=== PATIENT | male | born 1970 | race Caucasian/White ===

== ENCOUNTER 2018-03-13 05:54 | Emergency (ER) | payer OTHER ==
[~2018-03-13] VITALS: Ht 185.4 cm; Wt 79.4 kg
[2018-03-13 06:03] VITALS: BP 147/92
--- NOTE | 2018-03-13 06:06 | NUR ---
PATIENT BROUGHT IN BY SELF WITH C/O HIGH BLOOD PRESSURE 173/105 WHEN CHECKED AT [facility]. UPON EVALUATION IN ER, BP 147/92. NO ACUTE DISTRESS NOTED AT THIS TIME, AWAITING MD CATES
== END 2018-03-13 06:22 | disposition home or self-care (01) ==
LOC: ER 05:56
DX: R03.0 Elevated blood-pressure reading, without diagnosis of hypertension (principal); Z90.89 Acquired absence of other organs; Z88.6 Allergy status to analgesic agent
CPT/HCPCS: 99281; A4606; Z7610; Z7502

== ENCOUNTER 2022-11-24 01:22 | Emergency (ER) | payer OTHER ==
[~2022-11-24] VITALS: Ht 182.9 cm; Wt 83.9 kg
--- NOTE | 2022-11-24 02:00 | NUR ---
BIBS FOR R ANKLE PAIN AND SWELLING S/P FALL WHILE PLAYING PING PONG, GOOD PEDAL PULSE, - NEURO DEFICIT. PT IS AAOX4, ABLE TO MAKE NEEDS KNOWN, AMBULATORY
[2022-11-24] MEDS ORDERED: IBUPROFEN 400 MG TABLET ONE (02:14)
--- NOTE | 2022-11-24 02:17 | NUR ---
REFUSED TO TAKE MOTRIN AT THE MOMENT
[2022-11-24] MEDS ORDERED: IBUPROFEN 400 MG TABLET PO ONE (02:30)
--- NOTE | 2022-11-24 03:37 | NUR ---
BROUGHT TO CT DEPT
--- NOTE | 2022-11-24 03:56 | NUR ---
CAME BACK FROM CT DEPT
[2022-11-24] MEDS ORDERED: IBUP-1957 PO (05:03)
--- NOTE | 2022-11-24 05:08 | NUR ---
emt at the bed side to apply splint and provide patient with the crutches,
--- NOTE | 2022-11-24 05:21 | NUR ---
EDUCATE PT ON HOW TO USE CRUTCHES
--- NOTE | 2022-11-24 05:22 | NUR ---
Patient discharged to home in stable condition. Written and verbal after care instructions given. Patient verbalizes understanding of instruction.
[2022-11-24 05:39] VITALS: BP 135/81
== END 2022-11-24 05:43 | disposition home or self-care (01) ==
LOC: ER 01:24
DX: S82.841A Displaced bimalleolar fracture of right lower leg, initial encounter for closed fracture (principal); S82.491A Other fracture of shaft of right fibula, initial encounter for closed fracture; Z90.89 Acquired absence of other organs; Z79.899 Other long term (current) drug therapy; Z88.5 Allergy status to narcotic agent; X50.1XXA Overexertion from prolonged static or awkward postures, initial encounter; Y93.89 Activity, other specified; Y92.89 Other specified places as the place of occurrence of the external cause; Y99.8 Other external cause status
CPT/HCPCS: 73590-TC; 73610-TC; 73700-TC